=== PATIENT | male | born 1955 | race Caucasian/White ===

== ENCOUNTER 2023-06-26 19:10 | Inpatient (IN) | payer MEDICARE, OTHER, SELFPAY ==
[2023-06-26 16:08] VITALS: BP 131/75
--- NOTE | 2023-06-26 17:26 | ED.GENMED ---
History of Present Illness
General
Chief Complaint: Abdominal Symptoms
Source: patient and spouse
Time Seen by Provider: 06/26/23 17:24
Travel History
Have you had any contact with someone who has COVID-19?: No
Do you have any symptoms of coronavirus? Fever > 100 degrees, chills, cough, shortness of breath, sore throat, loss of taste or smell, muscle aches, or headache?: No
History of Present Illness
History of Present Illness:
This patient is a 68-year-old male presents emergency department after an outpatient CT was consistent with a diverticular related abscess. He says he first developed symptoms about 3 weeks ago with 'stabbing' lower abdominal pain. He went to
another ER was diagnosed with diverticulitis and started on Augmentin. He says that he took it twice a day for 7 days and then discontinued because of pain. His pain gradually got better and his stool became more formed when he saw the GI doctor
last Saturday. However, he has not had a bowel movement since last Saturday and he continues to describe discomfort in the left lower quadrant now described as 'irritating'. He is mildly anorexic but still tolerating p.o. and denies nausea,
vomiting, fever. He does have occasional chills. When asked about chest pain he says he has a 'fuzzy feeling' that comes and goes in the center of his chest without radiation that started about a week ago and is not present currently.
Past History
Past History
ED Past Medical History: Other (Diverticulitis)
ED Past Surgical History: Other (Hernia)
Social History
Tobacco: Non-smoker
Alcohol: Occasional
Drug: None
Personal:
Living: with family
Employment: Employed
Phy Exam
Physical Exam
Physical Exam:
GENERAL: Alert , in no apparent distress
EYE: pupils equal and reactive
NECK: Supple, no significant adenopathy.
ENT: o/p clr, mmm.
CARDIAC: Regular rate and rhythm .
LUNGS: Clear breath sounds bilaterally, no acute respiratory distress, no wheezes/rales/rhonchi
ABDOMEN: Soft, minimal left lower quadrant tenderness, no r/g, no cvat
NEUROLOGICAL: Alert and oriented, no focal neuro deficits
SKIN: Warm and dry, skin intact.
MUSCULOSKELETAL: No edema, well perfused.
PSYCH: Normal and appropriate interaction.
Course
Orders/Labs/Results
Orders:
Orders
06/26/23 Dinner
NPO
Allow oral meds: Yes
Allow clear liquids: Sips of Clears
06/26/23 17:47
Electrocardiogram (*1) Stat
Reason for Study: Abdominal Pain
Cardiac Monitoring- Treatment ONCE
EKG- Treatment ONCE
0.9% Sodium Chloride 500 ml [Nss] 500 ml IV BOLUS
LevoFLOXacin 500 MG/100 ML [Levaquin] 500 mg in 100 ml IV NOW
MetroNIDAZOLE 500 MG/100 ML [Flagyl 500 mg] 100 ml IV NOW
06/26/23 17:51
Complete Blood Count/No Diff Urgent
Blood Culture Urgent
NICOLETTE Source: Blood/Venous
Specimen Description:
06/26/23 18:27
Admit/Transfer Patient As Directed
Co-Sign Provider:
Level of Care: Inpatient admission
Assign to:: Medical/Surgical
Physician / Group: donya
Diagnosis: diverticular abscess
Reason for Hospitalization: diverticular abscess
Expected length of stay greater than two midnights?: Yes
ELOS- Estimated Length of Stay in days: 2
I certify the patient meets the requirements for IP care: Yes
06/26/23 18:28
Code Status As Directed
Resuscitation Status: Full Code
06/26/23 19:33
Basic Metabolic Panel Urgent
06/26/23 20:02
HYDROmorphone [Dilaudid] 0.5 mg IV Q4HPRN PRN
Heparin 5,000 units SC Q12
Ondansetron Injectable [Zofran] 4 mg IV Q6HPRN PRN
06/26/23 20:02
ColoRectal Surgery Consult Routine
Consulting Provider: Butch Anaya
Was physician already notified: Yes
Activity As Directed
Activity Level: As Tolerated
Vital Signs As Directed
Frequency: Per unit guidelines
DX Deep Vein Thrombosis Video Routine
06/27/23 02:00
MetroNIDAZOLE 500 MG/100 ML [Flagyl 500 mg] 100 ml IV Q8H
06/27/23 07:19
Complete Blood Count/With Diff IN AM
Comprehensive Metabolic Panel IN AM
06/27/23 18:00
LevoFLOXacin 750 MG/150 ML [Levaquin] 750 mg in 150 ml IV Q24H
Abnormal Lab Results
06/26/23
17:51
MCH 31.4 H pg
(27.0-31.0)
06/26/23 17:51
06/26/23 17:51
Vital Signs
Initial and Last Documented VS:
Initial Vital Signs
Temp Pulse Resp BP Pulse Ox
98.0 F 63 18 131/75 98
06/26/23 16:08 06/26/23 16:08 06/26/23 16:08 06/26/23 16:08 06/26/23 16:08
Last Documented Vital Signs
Temp Pulse Resp BP Pulse Ox
97.7 F 50 18 129/67 95
06/27/23 07:00 06/27/23 07:00 06/27/23 07:00 06/27/23 07:00 06/27/23 07:00
*Critical Care Note
Total Time (30-74mins, 75-104mins- exclusive of procedures): Not Applicable
Update Note
Update Note:
Patient presents to the Emergency Department with ____abdominal pain
Number and Complexity of Problems Addressed at the Encounter
� Chronic conditions affecting care:
� Acute Exacerbation and/or Progression of Chronic Illness:
� Differential Diagnosis includes: But not limited to diverticulitis with abscess, perforation, etc.
Amount and/or Complexity of Data to be Reviewed and Analyzed
� I performed an independent evaluation of and my interpretation is:
EKG:
CT:Read by rads: No evidence for obstruction. Moderate amount stool within the colon. There is fairly extensive diverticular disease within the sigmoid which appears mildly thickened distally with a bilobed fluid abscess along
the anterior margin of the distal sigmoid/rectumr measuring approximately 4.6 cm length and 2.7 cm in maximal diameter. The intramural component measures up to 2.7 cm.
Xrays:
Laboratory Studies: Pending at time of discussion with hospitalist
Other:
� Review of other/old records reveals:
� Clinical information was obtained by an independent historian:
� Prescriptions/Medications Considered but not given:
� Further testing considered but not performed:
Risk of Complications and/or Morbidity or Mortality of Patient Management
� Social determinants of health affecting care:
� Discussion with other providers (PCP, Hospitalists, Consultants, etc):
� Escalation of care including admission/observation vs risk of discharge considered: Long discussion with patient and , he is aware of his CT findings and the likely plan of care which will include consult with IR in a.m. to
consider IR guided drainage of abscess. Will start IV antibiotics here. Patient overall nontoxic and not septic. [place] text sent to hospitalist
ED Attending Note
-
Portions of this chart may have been created with voice recognition software.� Occasional wrong word or��sound alike� substitutions may have occurred due to the inherent limitations of voice recognition software.
Discharge Plan
Departure
Patient Disposition: Admit
Date of Disposition: 06/26/23
Time of Disposition: 17:49
Admit to: Med/Surg
Presentation/result/management discussed w/ accepting MD/DO: Hospitalist
Condition: Good
Discharge Problem:
diverticulitis with abscess
Interventions
Interventions:
*General Assessment Last Done: 06/26/23 16:08
*Neglect/Abuse Screening Last Done: 06/26/23 16:08
ED- Fall Risk Assessment Last Done: 06/26/23 19:34
*Nursing Disposition Last Done: 06/26/23 20:00
RG-Tsskmu-Thvbaxlnnb Assessment Last Done: 06/26/23 18:41
Discharge Date and Time
Discharge Date/Time: 06/26/23 20:00
[2023-06-26 17:38] VITALS: BP 129/82
[2023-06-26 18:00] VITALS: BP 115/68
[2023-06-26 18:01] LABS: Hematocrit 44.2 % (39.0-52.0); Hemoglobin 15.8 g/dL (13.0-18.0); Mean Corp Hgb Conc. 35.7 g/dL (33.0-37.0); Mean Corpuscular Hgb 31.4 pg (27.0-31.0); Mean Corpuscular Volume 87.9 fL (80.0-94.0); Mean Platelet Volume 9.2 fL (7.4-10.4); Platelet Count 339 10^3/uL (130-400); Red Blood Cell Count 5.03 10^6/uL (4.70-6.10); Red Cell Dist. Width 12.8 % (11.5-14.5)
--- NOTE | 2023-06-26 18:30 | HPS.HSE ---
Family Physician
-
Family Physician: Hailey Knight
Chief Complaint
-
abdominal pain
History of Present Illness
68-year-old male with past medical history of diverticulitis 7 years ago presenting for left lower quadrant abdominal pain. He originally developed abdominal pain 3 weeks ago and had a CT scan at that time in [place] which showed diverticulitis.
He was treated with Augmentin which she took for 7 out of 10 days but stopped taking it because he was having diarrhea. He continued to have pain and saw Dr. Banuelos last week who ordered CT scan which she had today which showed diverticular
abscess. He has been constipated and has not had a proper bowel movement 3 weeks. He took enema yesterday and today without any significant amount of stool output. He denies any fevers or chills. He denies any nausea or vomiting. Abdominal pain
is somewhat better at this time.
He smokes occasionally. Drinks alcohol 1-2 times a week.
Medical History
Past Medical History
Past Medical History: Reports Other ( diverticulitis 7 years ago)
Past Surgical History: Reports Other (Left inguinal surgery in February)
Social History
Tobacco: Smoker
Alcohol: Occasional
Drug: None
Family History
Family History: Not pertinent
Allergies / Home Medications
Allergies reflects when Allergies were last updated in [facility].
Home Medications with original date entered in [facility]
Allergy/Medication List:
Allergies
Allergy/AdvReac Type Severity Reaction Status Date / Time
No Known Allergies Allergy Verified 06/26/23 16:08
Home Medications
No Meds [No Current Medications] 06/26/23
Review of Systems
-
History Source: Patient
A 12 point ROS was completed and negative except as noted: Yes
Constitutional: Reports No Symptoms
EENT: Reports No Symptoms
Respiratory: Reports No Symptoms
Cardiac: Reports No Symptoms
Abdomen/GI: Reports See HPI
: Reports No Symptoms
Musculoskeletal: Reports No Symptoms
Skin: Reports No Symptoms
Neurological: Reports No Symptoms
Endocrine: Reports No Symptoms
Hematologic/Lymphatic: Reports No Symptoms
Psych: Reports No Symptoms
Physical Exam
Vital Signs
Vital Signs
Temp Pulse Resp BP Pulse Ox
98.0 F 63 18 131/75 98
06/26/23 16:08 06/26/23 16:08 06/26/23 16:08 06/26/23 16:08 06/26/23 16:08
Physical Exam
General: Well Developed, Well Nourished and No Apparent Distress
HEENT: NormoCephalic, Moist mucous membranes and Atraumatic
Respiratory: Clear
Cardiac: S1/S2 and Regular Rhythm; No Murmur or Rub
GI: Soft, Non Distended, Normal Bowel Sounds and Tender (LLQ ); No Organomegaly
Rectal: Deferred by Provider
Musculoskeletal: No Clubbing, No Cyanosis and No Edema
Skin: No Rash
Neuro: Nonfocal/grossly intact
Laboratory Results
-
06/26/23 17:51
Laboratory Results
Total Bilirubin Cancelled 06/26/23 17:51
AST Cancelled 06/26/23 17:51
ALT Cancelled 06/26/23 17:51
Alkaline Phosphatase Cancelled 06/26/23 17:51
Data Reviewed
-
Lab Data: Labs Reviewed by me
Old Records: Reviewed
Impression/Plan
-
IMPRESSION:
PLAN:
# Diverticulitis with abscess
-N.p.o.
-IV fluids given
-Blood cultures
-Levaquin/Flagyl
-Colorectal surgery consulted
Full code
DVT prophylaxis�heparin
N.p.o.
[2023-06-26] MEDS: FLAGYL 500 MG 100 IV (18:53)
[2023-06-26] MEDS: LEVAQUIN 100 IV (18:53)
[2023-06-26] MEDS: NSS 500 IV (18:55)
[2023-06-26 19:00] VITALS: BP 109/65
[2023-06-26 19:55] LABS: Blood Urea Nitrogen 20 mg/dl (9-20); Calcium 8.9 mg/dl (8.4-10.2); Carbon Dioxide 23 mmol/L (22-30); Chloride 102 mmol/L (98-107); Glucose 79 mg/dl (70-99); Sodium 135 mmol/L (135-145); eGFR > 60.00
[2023-06-26 20:14] VITALS: BP 145/75; BMI 25.9
[2023-06-26] MEDS: HEPARIN 5000 UNITS SC (20:44)
[2023-06-26 23:07] VITALS: BP 156/90
[2023-06-27] MEDS: FLAGYL 500 MG 100 IV ×3 (01:02→17:43)
[2023-06-27 07:00] VITALS: BP 129/67
[2023-06-27 07:52] LABS: % Basophils 0.8 % (0-2); % Eosinophils 2.9 % (0-6); % Immature Granulocytes 0.4 % (0-0.5); % Lymphocytes 25.2 % (20.5-51.1); % Monocytes 7.6 % (1.7-9.3); % Neutrophils 63.1 % (42.2-75.2); Absolute Eosinophils 0.1 10^3/uL (0-0.7); Absolute Lymphocytes 1.2 10^3/uL (1.2-3.4); Absolute Monocytes 0.4 10^3/uL (0.1-0.6); Absolute Neutrophils 3.1 10^3/uL (1.4-6.5); Hematocrit 42.4 % (39.0-52.0); Hemoglobin 15.1 g/dL (13.0-18.0); Mean Corp Hgb Conc. 35.6 g/dL (33.0-37.0); Mean Corpuscular Hgb 31.5 pg (27.0-31.0); Mean Corpuscular Volume 88.3 fL (80.0-94.0); Mean Platelet Volume 9.4 fL (7.4-10.4); Nucleated Red Blood Cells % 0 % (-); Platelet Count 318 10^3/uL (130-400); Red Cell Dist. Width 12.6 % (11.5-14.5); White Blood Cell Count 4.9 10^3/uL (4.8-10.8)
[2023-06-27] MEDS: HEPARIN 5000 UNITS SC (07:53)
[2023-06-27 08:07] LABS: ALT (SGPT) 25 U/L (0-50); AST (SGOT) 27 U/L (17-59); Albumin 3.7 g/dl (3.5-5.0); Alkaline Phosphatase 71 U/L (38-126); Blood Urea Nitrogen 16 mg/dl (9-20); Calcium 9.5 mg/dl (8.4-10.2); Carbon Dioxide 23 mmol/L (22-30); Chloride 107 mmol/L (98-107); Estimated Creatinine Clearance 90 ml/min; Glucose 93 mg/dl (70-99); Potassium 4.7 mmol/L (3.5-5.1); Sodium 138 mmol/L (135-145); Total Bilirubin 0.9 mg/dl (0.2-1.3); Total Protein 6.9 g/dl (6.3-8.2); eGFR > 60.00
--- NOTE | 2023-06-27 10:47 | CON.CRS ---
Consultation
-
Date/Time Consultation Requested: 06/26/2023, 20:20
Date/Time Consultation Performed: 07/07/2023, 08:45
Requesting Provider: Goran Reyes MD
Performing Provider: Sincere Aguirre MD
Reason for Consultation: diverticulitis
Medical History
-
Chief Complaint: abdominal pain
History of Present Illness:
68-year-old male, with a past medical history of diverticulitis in 2015, presents to the emergency room due to a diverticular abscess ordered on an outpatient CT. The patient originally had developed abdominal pain about 3 weeks ago and had a CT
scan done in [place] which showed diverticulitis. He took Augmentin for 7 days and then stopped due to diarrhea which made his abdominal pain worse. After stopping the antibiotics, his pain subsided to a 3 or 4 out of 10 which it has remained
since. Given that his pain never went away, he followed up with Dr. Peterson in gastroenterology. He was told to take 2 enemas and was ordered a CT scan. The CT shows an intramural abscess in the distal sigmoid: 4.6 x 2.7 cm diverticular disease in
the sigmoid colon. He was instructed to go to the ER. Currently he denies any fevers or chills. He denies nausea or vomiting. He still feels constipated and his last bowel movement had a lot of mucus surrounding it. His abdominal pain has
slightly improved since admission. His white count is normal at 4.9 and his vitals have been normal. His last colonoscopy was in [address] Rosario which showed diverticulosis throughout his entire colon. He was seen in the office in 2018 by
Marlene due to frequent loose bowel movements and abdominal pain and was started on low residue diet for a week. No imaging was performed at that time and his symptoms had improved. We have been consulted for further surgical opinion regarding his
abscess and diverticulitis.
Past Medical History
Past Medical History: Other (diverticulitis in 2016, h/o skin cancer)
Past Surgical History: Hernia Repair (Left inguinal surgery in February [address] Pellini) and Other (Bilateral knee surgery, skin cancer excision)
Social History
Tobacco: Smoker
Alcohol: Occasional
Drug: None
Family History
Family History: Reviewed & Not Pertinent
Allergies / Home Medications
Allergy/AdvReac Type Severity Reaction Status Date / Time
No Known Allergies Allergy Verified 06/26/23 16:08
�Medication �Instructions �Recorded �Confirmed �Type
No Meds [No Current Medications] 06/26/23 06/26/23 History
Review of Systems
-
History Source: Patient
Abdomen/GI: Abdominal Pain and Constipated
A 10 point review of systems was completed, and was negative except as per HPI.
Physical Exam
Vital Signs
Temp 97.7 F 06/27/23 07:00
Pulse 50 06/27/23 07:00
Resp Rate 18 06/27/23 07:00
Blood pressure 129/67 06/27/23 07:00
SaO2 95 06/27/23 07:00
06/26/23 06/27/23 06/28/23
06:59 06:59 06:59
Actual Weight 79.407 kg
Body Mass Index (BMI) 25.9
Lab Results / Allergies
06/27/23 07:19
06/27/23 07:19
WBC 4.9 10^3/uL (4.8-10.8) 06/27/23 07:19
Hgb 15.1 g/dL (13.0-18.0) 06/27/23 07:19
Hct 42.4 % (39.0-52.0) 06/27/23 07:19
Plt Count 318 10^3/uL (130-400) 06/27/23 07:19
Abs Immat Gran (auto) 0.0 10^3/uL (0-0.05) 06/27/23 07:19
Neutrophils % 63.1 % (42.2-75.2) 06/27/23 07:19
Allergy/AdvReac Type Severity Reaction Status Date / Time
No Known Allergies Allergy Verified 06/26/23 16:08
Physical Exam
General: Well Developed, Well Nourished and No Apparent Distress
GI: Soft, Non Distended and Tender (suprapubic, LLQ - mild)
Skin: Warm and Dry
Neuro: AO x 3
Data Reviewed
-
CT Scan: Image Personally Visualized and interpreted, Report Reviewed by me and Discussed with Patient
Medical Tests (Nuc Med, Echo etc): Image Personally Visualized and interpreted, Report Reviewed by me and Discussed with Patient
Old Records: Reviewed
Assessment / Plan
-
Assessment: 68-year-old male with abdominal pain, found to have sigmoid diverticulitis, second attack, and associated intramural abscess. Vitals have remained normal and WBC is normal. On IV antibiotics.
Plan:
There is no need for urgent surgery at this time. If patient were to worsen he will require a colectomy with colostomy creation. This was discussed with the patient. Given the location of the abscess there is no role for interventional radiology
at this time. Recommend continuing IV antibiotics. Advance diet to clears with IV fluids. Continue to trend labs and vitals. Will follow. Eventual colonoscopy as an outpatient, has one scheduled with Dr. Peterson this coming August.
--- NOTE | 2023-06-27 11:07 | CM ---
Patient seen bedside, initial assessment completed. Patient resides with his in a multiple story home, no steps to enter. Patient denies DME, VN, or SNF. Patient confirms PCP Hailey Knight, pharmacy [facility], confirms
prescription coverage. Patient denies any needs at this time. CM will continue to follow for discharge planning needs.
Plan; home no needs anticipated.
--- NOTE | 2023-06-27 13:38 | W.PN.HOSP.TC ---
Today's Communication/Plan
-
IV AB
Clears
Assessment / Plan
Assessment / Plan
68-year-old male with history of diverticulitis in 2016 came to the hospital with an abnormal CT ordered as outpatient. Patient had abdominal pain for 3 weeks had a CAT scan done in [place] which showed diverticulitis. He was treated with
Augmentin for 7 days and then stopped due to diarrhea. This made his pain worse. After he stopped his antibiotics pain got better but never completely subsided. He saw GI-Dr. Banuelos who advised him to do enema at home and ordered a CT which
showed an intramural abscess in the distal sigmoid which prompted admission.
Ct A/P IV and Oral- -Bilobed intramural abscess originating from the distal sigmoid colon measuring approximately 4.6 x 2.7 cm in cross-section. Mild thickening of the distal sigmoid. Findings likely sequela of diverticulitis.
CVS: S1-S2 normal
Chest: CTA B/L
Abdomen: Soft, Left LQ and suprapubic area tenderness, Bowel sounds present
Extremities: No edema, normal pulses
CUSTOM CLOTHIER: Non focal exam
# Acute diverticulitis with intramural abscess
Was on Augmentin as Op 3 weeks ago
Started on Levaquin and Flagyl-Continue
Colorectal surgery evaluation appreciated
Monitor on IV antibiotics
# Mild prostatomegaly-OP Urology eval
# DVT prophylaxis-add Lovenox
# Full CODE
Anticipated Discharge: 24 - 48 hours
Subjective/Interval History
-
Date of Service: June 27, 2023
Objective Data
-
Labs:
Laboratory Results
06/27/23
07:19
WBC 4.9
Hgb 15.1
Hct 42.4
Plt Count 318
Sodium 138
Potassium 4.7
Chloride 107
Carbon Dioxide 23
BUN 16
Creatinine 0.8
Glucose 93
Calcium 9.5
Total Bilirubin 0.9
AST 27
ALT 25
Alkaline Phosphatase 71
Vital Signs:
Vital Signs
Temp Pulse Resp BP Pulse Ox
97.7 F 50 18 129/67 95
06/27/23 07:00 06/27/23 07:00 06/27/23 07:00 06/27/23 07:00 06/27/23 07:00
I&O
06/26/23 06/27/23 06/28/23
06:59 06:59 06:59
Intake Total 100 / 100
Balance 100 / 100
[2023-06-27 15:00] VITALS: BP 127/68
[2023-06-27] MEDS: LEVAQUIN 150 IV (17:43)
[2023-06-27] MEDS: LOVENOX 40 MG SC (17:43)
[2023-06-27 19:20] LABS: Hepatitis C Antibody Negative (Negative)
[2023-06-27 23:00] VITALS: BP 106/64
[2023-06-28] MEDS: FLAGYL 500 MG 100 IV ×2 (02:56→09:20)
[2023-06-28 07:40] VITALS: BP 104/60
--- NOTE | 2023-06-28 08:52 | W.PN.CRS1 ---
Today's Communication / Plan
-
Advance to low residue; continue for 1 week after discharge
If tolerating low residue, okay for discharge; follow-up with me in 2 to 4 weeks
Will sign off, please call for questions or concerns
Assessment/Plan
-
67-year-old male with PMH of diverticulitis 7 years ago who presents with 3 weeks of abdominal pain. Initially, CT was done showing uncomplicated diverticulitis and patient completed 7 days of oral antibiotic. He continued to have constipation and
a repeat CT was done by Dr. Banuelos, which showed persistent diverticulitis with intramural abscess of 4 x 2 cm; patient was sent into the ED for further management; he states that overall his pain has continued to improve, but remains constipated;
denies fevers; last colonoscopy was [address] Rosario, which showed diverticulosis and recommended repeat in 10 years
AFVSS, NAD, ABD S/ND/minimally in the suprapubic, no R/G
No labs today
� Continue nonoperative measures; no indication for urgent surgery; no need for IR drainage as he is improving clinically
�Okay for low residue
� Continue DVT PPx with subQ heparin
� Continue IV antibiotics; recommend 14-day total course
� OOB/IS
�From CRS standpoint, if tolerating diet okay for discharge; follow-up with me in 2 to 4 weeks
Subjective Data
Subjective Data
Date of Service: June 28, 2023
No overnight events.
Pain minimal.
Denies nausea/vomiting. Tolerating clears.
+flatus +BMs +voiding
Pt is OOB.
Objective Data
-
Vital Signs
Temp Pulse Resp BP Pulse Ox
97.7 F 57 16 104/60 95
06/28/23 07:40 06/28/23 07:40 06/28/23 07:40 06/28/23 07:40 06/28/23 07:40
Intake & Output
06/27/23 06/28/23 06/29/23
06:59 06:59 06:59
Intake Total 100 / 100 240 / 240
Output Total 350 / 350
Balance 100 / 100 -110 / -110
Intake:
Oral fluids 240 / 240
IV piggybacks 100 / 100
Output:
Urine, Reeves 350 / 350
Other:
Number of approximated MODERATE 1 2
amounts of urine
Lab Results
06/27/23 07:19
06/27/23 07:19
Physical Exam
-
General: No Acute Distress and AOx3
HEENT: Grossly Normal
Abdomen: Soft, Non Distended, Tender (Minimally tender in the suprapubic region), No Guarding and No Rebound
Skin: Warm and Dry
--- NOTE | 2023-06-28 09:39 | W.PN.HOSP.TC ---
Today's Communication/Plan
-
Continue with antibiotics
Advance diet per surgery
Assessment / Plan
Assessment / Plan
68-year-old male with history of diverticulitis in 2016 came to the hospital with an abnormal CT ordered as outpatient. Patient had abdominal pain for 3 weeks had a CAT scan done in [place] which showed diverticulitis. He was treated with
Augmentin for 7 days and then stopped due to diarrhea. This made his pain worse. After he stopped his antibiotics pain got better but never completely subsided. He saw GI-Dr. Banuelos who advised him to do enema at home and ordered a CT which
showed an intramural abscess in the distal sigmoid which prompted admission.
Ct A/P IV and Oral- -Bilobed intramural abscess originating from the distal sigmoid colon measuring approximately 4.6 x 2.7 cm in cross-section. Mild thickening of the distal sigmoid. Findings likely sequela of diverticulitis.
# Acute diverticulitis with intramural abscess
Was on Augmentin as Op 3 weeks ago
Started on Levaquin and Flagyl-patient with much improved pain and tenderness. Afebrile and normal white count. Tolerating clear liquid diet.Advance diet per surgery.
Colorectal surgery evaluation appreciated
Monitor on IV antibiotics
# Mild prostatomegaly-OP Urology eval
# DVT prophylaxis-add Lovenox
# Full CODE
Anticipated Discharge: 24 - 48 hours
Subjective/Interval History
-
Date of Service: June 28, 2023
Much improved abdominal pain. Tolerating liquid diet so far.
No nausea vomiting.
No fever or chills.
Objective Data
-
Vital Signs:
Vital Signs
Temp Pulse Resp BP Pulse Ox
97.7 F 57 16 104/60 95
06/28/23 07:40 06/28/23 07:40 06/28/23 07:40 06/28/23 07:40 06/28/23 08:15
I&O
06/27/23 06/28/23 06/29/23
06:59 06:59 06:59
Intake Total 100 / 100 240 / 240
Output Total 350 / 350
Balance 100 / 100 -110 / -110
Review of Systems
-
Respiratory: Denies Cough or Trouble Breathing
Cardiac: Denies Chest Pain
Neuro: Denies Dizzy
Physical Exam
-
General: No Apparent Distress
HEENT: Moist Mucous Membranes
Respiratory: Clear to Auscultation
Cardiac: Regular Rhythm and S1/S2
GI: Soft; Negative Nontender (mild discomfort in LLQ but no rebound)
Neuro: AO x 3
Psych: Calm
Data Reviewed
-
Labs: Labs Reviewed by me
--- NOTE | 2023-06-28 11:27 | CM ---
Addendum entered by Senia Kelley 06/28/23 15:30:
Patient seen with , discussed plan for discharge. IMM signed, placed in chart.
Plan; home no needs.
Original Note:
Chart reviewed, continue antibiotics, advance diet per surgery. Patient seen bedside, reports no needs to CM at this time. CM will continue to follow for all discharge planning needs.
Plan; home no needs when medically stable.
--- NOTE | 2023-06-28 15:07 | PTCARENOTE ---
Assumed care of pt from previous nurse. Pt denies pain. Pt abd soft, tender to palpation, hypoactive bowel sounds. No noted n/v. Pt tolerating low residue diet without issue. Pt call ayala is within reach, pt rings yarelis. will cont to monitor.
--- NOTE | 2023-06-28 15:13 | W.DS.TRANS ---
DC Summary - Honing Machine Operator
-
Discharge Instructions:
Discharge Diagnosis/Procedures Diverticular abscess
Diet Low Residue
Additional Diets low residue diet for a week
Activity No strenuous activity
Driving Restrictions As prior to admission
Bathing Restrictions None
Instructions:
Stand-Alone Forms:
Changes to Home Medications: Yes
Discharge Medications:
DC Medications w/original date entered in [facility]
levofloxacin 500 mg tablet 500 mg PO DAILY 10 days #10 tabs 06/28/23
metronidazole 500 mg tablet 500 mg PO TID #30 tabs 06/28/23
Home Medication Changes
New med -both antibiotics
Pending Results: No
[2023-06-28 15:40] VITALS: BP 142/60
[2023-06-28] MEDS: PREVNAR 20 0.5 ML IM (15:47)
[2023-06-28 16:10] VITALS: BP 121/65
--- NOTE | 2023-06-28 16:25 | PTCARENOTE ---
Pt dc'd to home accompanied by , ekg completed, pna vaccine provided. Pt iv removed. DC paperwork reviewed.
--- NOTE | 2023-06-28 17:38 | W.DCSUMMARY ---
Discharge Summary
Discharge Data
Date of Admission: 06/26/23
Date of Discharge: 06/28/23
-
Pending Results: No
Hospital Course
Primary diagnosis:
Acute diverticular abscess
Hospital course:
68-year-old gentleman with a history of diverticulosis and prior diverticulitis presented with acute abdominal pain and discovered to have bilobed intramural abscess originating from the distal sigmoid colon measuring approximately 4.6 x 2.7 cm in
cross-section. Mild thickening of the distal sigmoid. Findings likely sequela of diverticulitis.
Pain and abdominal tenderness. Not septic. No fever workup was normal.
Was seen by colorectal surgery who recommended at this current time to continue with medical treatment. [place] the abscess may not be amenable to IR drainage because of the location and the size. With the combination of Levaquin and Flagyl he had
significant improvement in his abdominal pain and tenderness and was tolerating a diet at the time of discharge. Advised to follow-up with colorectal surgery in 2 weeks.
Consultants on board:
Colorectal surgery-Dr. Sincere Aguirre
Discharge Plan
-
Patient Disposition: Home (Routine Discharge)
Discharge Diagnosis/Procedures: Diverticular abscess
Diet: Low Residue
Additional Diets: low residue diet for a week
Activity: No strenuous activity
Driving Restrictions: As prior to admission
Bathing Restrictions: None
Activity Restrictions/Additional Instructions:
OP Urology evaluation for enlarged Prostate
Referrals:
Jamel Rosario MD [Active] -
Joby Banuelos MD [Active] -
Hailey Knight MD [Family Provider] - in less than 1 week
Prescriptions:
New
levofloxacin 500 mg tablet
500 mg PO DAILY 10 Days Qty: 10 0RF
metronidazole 500 mg tablet
500 mg PO TID Qty: 30 0RF
Discharge Orders:
Discharge Patient (As Directed); Ordered 06/28/23
Ordered By: Americo Tucker
Discharge Date and Time
Discharge Date/Time: 06/28/23 16:54
Print Language: YAKUT
== END 2023-06-28 16:54 | disposition home or self-care (01) | DRG 392 ==
LOC: 4 WEST ACU 19:10
PROVIDERS: ADMITTING PHYSICIAN Hospitalist; ATTENDING PHYSICIAN Internal Medicine; EMERGENCY PHYSICIAN Emergency Medicine; FAMILY PHYSICIAN Family Medicine; OTHER PHYSICIAN Surgery
DX: K57.20 Diverticulitis of large intestine with perforation and abscess without bleeding (principal); F17.200 Nicotine dependence, unspecified, uncomplicated
CPT/HCPCS: 36415; 74177; 80048; 80053; 82565; 84520; 85025; 85027; 86803; 87040; 90677; 93005; 96365; 96366; 99285; 99406; G0009; Q9967

== ENCOUNTER → 2023-08-12 06:26 | Day surgery (SDC) | payer MEDICARE, OTHER, SELFPAY | LOC: GI 06:26 | PROVIDERS: ATTENDING PHYSICIAN Internal Medicine Gastroenterology | DX: Z12.11 Encounter for screening for malignant neoplasm of colon (principal); K64.8 Other hemorrhoids; K57.30 Diverticulosis of large intestine without perforation or abscess without bleeding; K57.32 Diverticulitis of large intestine without perforation or abscess without bleeding | CPT/HCPCS: G0121 ==